=== PATIENT | female | born 2000 | race African-American/Black ===

== ENCOUNTER 2023-05-18 16:43 | Emergency (ER) | payer MEDICAID, OTHER, SELFPAY ==
--- NOTE | ~2023-05-18 | CT_ITS ---
EXAMINATION: CT ABDOMEN AND PELVIS WITHOUT CONTRAST CLINICAL INFORMATION: Abdominal pain nausea and vomiting, question calculi COMPARISON: None available. TECHNIQUE: Multidetector volumetric imaging was performed from the superior aspect of the liver through the pubic symphysis. Sagittal and coronal reformatted images were obtained on the technologist's workstation. This CT examination was performed using dose optimization techniques as appropriate, variously including the following: *Automated exposure control *Adjustment of mA and/or kV according to patient size (this includes techniques or standardized protocols for targeted exams where dose is matched to indication/reason for exam; i.e. extremities or head) *Use of iterative reconstruction technique DLP: 440 mGy-cm FINDINGS: LUNG BASES: The visualized lung bases are unremarkable. LIVER, GALLBLADDER, AND BILIARY TREE: The liver is normal in size, shape, and attenuation. No focal hepatic lesion or biliary ductal dilatation is present. The gallbladder is unremarkable with no evidence of radiopaque gallstones, gallbladder wall thickening, or obvious pericholecystic inflammatory changes. PANCREAS: Unremarkable. SPLEEN: Unremarkable. ADRENAL GLANDS: Unremarkable. KIDNEYS AND URETERS: The kidneys are normal in size, shape, and attenuation. No hydronephrosis, hydroureter, or calculi seen. No perinephric stranding. BLADDER: Unremarkable. GASTROINTESTINAL TRACT: The small and large bowel are unremarkable. The appendix is unremarkable. ABDOMINAL WALL: No significant hernia is appreciated. LYMPH NODES: Normal. VASCULAR: Unremarkable. PELVIC VISCERA: There is a 4.6 x 4.0 x 5.3 cm left adnexal cyst. OSSEOUS STRUCTURES: Unremarkable. CT/CT abdomen pelvis wo IV con IMPRESSION: 1. No explanation for abdominal pain. 2. Left adnexal cyst. Fleischner guidelines were followed.
[2023-05-18 17:02] VITALS: BP 113/68; PULSE 81; RESP 18; TEMP 36.7; O2SAT 100; BMI 27.4
--- NOTE | 2023-05-18 17:02 | ED_ITS ---
HPI - Abdominal Pain General Chief Complaint: Abdominal Pain Stated Complaint: Abdominal pain Time Seen by Provider: 05/18/23 21:41 Source: patient Mode of arrival: ambulatory Limitations: no limitations History of Present Illness HPI narrative: Patient no significant past medical history couple been having diffuse abdominal pain for last 1 month got worse lately for last few days had nausea vomited 1 time and loose bowels small amount of blood in the end of the stool with history of hemorrhoids no fever no chills patient is under increased stress feels bloated Related Data Previous Rx's Medication Instructions Recorded cefuroxime axetil 250 mg tablet 250 mg PO BID 7 days #14 tabs 05/18/23 dicyclomine 20 mg tablet 20 mg PO QID PRN abdominal pain 05/18/23 #20 tabs ibuprofen 600 mg tablet 600 mg PO Q6H PRN fever or pain 05/18/23 #30 tabs Allergies Allergy/AdvReac Type Severity Reaction Status Date / Time No Known Allergies Allergy Verified 05/18/23 17:01 Review of Systems Review of Systems Yes all other systems are reviewed and are negative [facility] Social History Social History Smoked in Last 30 Days: No Use of substances other than those prescribed or required for medical reasons: No Advance Directives: No Advance Directives Information Provided: No Patient : No Physical Exam ED Vital Signs: Vital Signs - 24 hr 05/18/23 17:02 05/18/23 21:50 Temperature 98.1 F 98.2 F Pulse Rate 81 70 Respiratory Rate 18 16 Blood Pressure 113/68 114/76 Pulse Oximetry 100 100 Oxygen Delivery Method Room Air Room Air BMI result Body Mass Index 27.4 Appearance: Alert. Oriented X3. No acute distress. Neck: Normal inspection. Neck supple. CVS: Normal heart rate and rhythm. Pulses normal. Respiratory: No respiratory distress. Equal air entry bilateral, Abdomen: Soft mild diffuse tenderness no significant tenderness in suprapubic area no rebound tenderness or guarding Bowel sounds are present, no mass palpable, no CVA tenderness Skin: Skin warm and dry. Normal skin color. Normal skin turgor. Course Course Course Narrative: This is an RME: Additional HPI, ROS, PE not included below will be deferred to primary provider. Patient is a 22-year-old female who presents to the emergency department for evaluation of ABD pain. Onset 2 weeks ago, diffuse abdominal pain, constant in nature, worsens with eating, associated chills and nausea. Has had similar pain in the past, denies known etiology. Endorses dysuria, hematochezia, history of hemorrhoids, diarrhea. Denies possibility of Plan: Labs, UA Medical Decision Making Differential Diagnosis Differential Diagnoses: The differential diagnosis associated with the presentation includes UTI/IBS/ovarian cyst/gastroenteritis Admission/Observation Consideration of admission/observation: Escalation of care including admission/observation considered Lab Data MDM Lab Attestation statement: I reviewed the patient's lab results. 05/18/23 17:36 05/18/23 17:36 Labs: Lab Results 05/18/23 Range/Units 17:36 WBC 11.6 H (4.8-10.8) X10*3/uL RBC 5.45 (4.20-5.50) X10*6/uL Hgb 10.8 L (12.0-16.0) g/dl Hct 34.9 L (37.0-47.0) % MCV 64.0 L (80.0-98.0) fL MCH 19.8 L (27.0-33.0) pg MCHC 30.9 L (31.0-35.0) g/dl RDW 16.3 H (11.0-16.0) % Plt Count 181 (160-400) X10*3/uL MPV Not Reportable Immature Gran % (Auto) 0.3 (0.0-0.4) % Neut % (Auto) 76.4 H (45-73) % Lymph % (Auto) 14.5 L (20-40) % [place] % (Auto) 7.4 (2-11) % Eos % (Auto) 0.8 (0-4) % Baso % (Auto) 0.6 (0-2) % Lymph # (Auto) 1.7 (1.2-4.9) X10*3/uL [place] # (Auto) 0.9 (0.1-1.2) X10*3/uL Eos # (Auto) 0.1 (0.0-0.4) X10*3/uL Baso # (Auto) 0.1 (0.0-0.2) X10*3/uL Abs Immat Gran (auto) 0.04 H (0.00-0.03) X10*3/uL Absolute Neuts (auto) 8.9 H (2.0-8.3) x10*3/uL Absolute Nucleated RBC 0.000 (0.0-0.012) X10*3/uL Nucleated RBC % (auto) 0.0 (0.0-0.2) /100WBC Sodium 140 (135-145) mmol/L Potassium 3.7 (3.3-5.1) mmol/L Chloride 110 H (96-108) mmol/L Carbon Dioxide 26 (22-29) mmol/L Anion Gap 8 L (12-20) BUN 7 L (9-16) mg/dL Creatinine 0.72 (0.5-1.4) mg/dL Estim Creat Clear Calc 127.4 Estimated GFR > 60 Random Glucose 107 (60-115) mg/dL Calcium 9.0 (8.4-10.2) mg/dL Total Bilirubin 0.2 (0.0-1.0) mg/dL AST 15 (5-31) U/L ALT 11 (0-31) U/L Alkaline Phosphatase 75 (39-117) U/L Total Protein 7.4 (6.5-8.0) g/dL Albumin 3.8 (3.5-5.0) g/dL Lipase 19 (8-78) U/L Beta HCG, Quant < 2 mIU/mL Urine Color Yellow Urine Appearance Turbid Urine pH 5.5 (5.0-9.0) Ur Specific [place] >= 1.030 H (1.005-1.025) Urine Protein 100 (2+) H (Neg-Trace) mg/dL Urine Glucose (UA) Negative (Negative) mg/dL Urine Ketones Negative (Negative) mg/dL Urine Blood Large (3+) H (Negative) Urine Nitrite Negative (Negative) Ur Leukocyte Esterase Moderate (2+) H (Negative) Urine RBC >20 H (0-2) /HPF Urine WBC >50 H (0-5) /HPF Ur Squamous Epith Cells 6-10 (0-2) /HPF Calcium Oxalate Crystal Present Urine Bacteria 1+ (None Seen) Hyaline Casts 0-2 (0-2) /LPF Urine Yeast Present Medications Administered Discontinued Medications Generic Name Dose Route Start Last Admin Trade Name Freq PRN Reason Stop Dose Admin Cefuroxime Axetil 250 mg 05/18/23 22:15 05/18/23 22:22 Cefuroxime Axetil 250 Mg Tablet PO 05/18/23 22:16 250 mg ONCE ONE Administration Dicyclomine HCl 20 mg 05/18/23 22:15 05/18/23 22:22 Dicyclomine Hcl 10 Mg Capsule PO 05/18/23 22:16 20 mg ONCE ONE Administration Discharge Plan Discharge Clinical Impression: Ovarian cyst, Irritable bowel syndrome, UTI (urinary tract infection) Patient Disposition: Home, Self-Care Instructions: Ovarian Cyst (ED), Irritable Bowel Syndrome (ED), Urinary Tract Infection in Women (ED) Additional Instructions: Drink plenty of fluids You have left ovarian cyst Also have slight urine tract infection Take antibiotic as prescribed Ibuprofen for pain Bentyl for abdominal discomfort Follow-up with a chief controller center for ovarian cyst which should get better in next 2 months Beber mucho l?quido Te last salido quiste ov?rico Tambi?n tiene jimmy infecci?n leve del tracto urinario. Cotati el antibi?joyce seg?n lo prescrito ibuprofeno para el dolor Bentyl para molestias abdominales. Seguimiento con ginec?logo por quiste ov?rico que deber?a mejorar en los pr?ximos 2 meses. Prescriptions: New cefuroxime axetil 250 mg tablet 250 mg PO BID 7 Days Qty: 14 0RF dicyclomine 20 mg tablet 20 mg PO QID PRN (Reason: abdominal pain) Qty: 20 0RF ibuprofen 600 mg tablet 600 mg PO Q6H PRN (Reason: fever or pain) Qty: 30 0RF Print Language: Frisian
[2023-05-18 17:44] LABS: MANUAL DIFF FLAG NO
[2023-05-18 17:47] LABS: Appearance Urine Turbid; Color Urine Yellow; Glucose Urine UA Negative (Negative); Leukocyte Esterase Urine Moderate (2+) (Negative); Nitrite Urine Negative (Negative); PH 5.5 (5.0-9.0); Specific Gravity - Urine >= 1.030 (1.005-1.025); UMIC TRIGGER UACC YES; Urine Blood Large (3+) (Negative); Urine Ketones Negative (Negative); Urine Protein 100 (2+) mg/dL (Neg-Trace)
[2023-05-18 18:02] LABS: Bacteria Urine 1+ (None Seen); Calcium Oxalate Crystals Urine Present; Hyaline Casts Urine 0-2 /LPF (0-2); RBC Urine >20 /HPF (0-2); UACC Culture Trigger YES; WBC Urine >50 /HPF (0-5)
[2023-05-18 18:08] LABS: Alanine Aminotransferase 11 U/L (0-31); Albumin Level 3.8 g/dL (3.5-5.0); Alkaline Phosphatase 75 U/L (39-117); Anion Gap 8 (12-20); Aspartate Amino Transferase 15 U/L (5-31); Bilirubin Total 0.2 mg/dL (0.0-1.0); Blood Urea Nitrogen 7 mg/dL (9-16); Carbon Dioxide 26 mmol/L (22-29); Chloride 110 mmol/L (96-108); Creatinine Clr Calc Pharmacy 127.4; Estimated Glomerular Filt Rate > 60; Glucose Random 107 mg/dL (60-115); Lipase 19 U/L (8-78); Potassium 3.7 mmol/L (3.3-5.1); Sodium 140 mmol/L (135-145); Total Protein 7.4 g/dL (6.5-8.0)
[2023-05-18 18:12] LABS: HCG Quantitative < 2 mIU/mL
[2023-05-18 18:21] LABS: Basophils Absolute Auto 0.1 X10*3/uL (0.0-0.2); Basophils Percent Auto 0.6 % (0-2); Eosinophils Absolute Auto 0.1 X10*3/uL (0.0-0.4); Eosinophils Percent Auto 0.8 % (0-4); Hematocrit 34.9 % (37.0-47.0); Hemoglobin 10.8 g/dl (12.0-16.0); Imm Gran Abs Auto 0.04 X10*3/uL (0.00-0.03); Imm Gran Pct Auto 0.3 % (0.0-0.4); Lymphocytes Absolute Auto 1.7 X10*3/uL (1.2-4.9); Lymphocytes Percent Auto 14.5 % (20-40); Mean Corpuscular HGB Conc 30.9 g/dl (31.0-35.0); Mean Corpuscular Hemoglobin 19.8 pg (27.0-33.0); Monocytes Absolute Auto 0.9 X10*3/uL (0.1-1.2); Monocytes Percent Auto 7.4 % (2-11); Neutrophils Absolute Auto 8.9 x10*3/uL (2.0-8.3); Neutrophils Percent Auto 76.4 % (45-73); Platelet Count 181 X10*3/uL (160-400); Red Blood Count 5.45 X10*6/uL (4.20-5.50); Red Cell Distribution Width 16.3 % (11.0-16.0); White Blood Count 11.6 X10*3/uL (4.8-10.8)
[2023-05-18 21:50] VITALS: BP 114/76; PULSE 70; RESP 16; TEMP 36.8; O2SAT 100
[2023-05-18] MEDS: cefuroxime axetiL 250 MG TABLET PO (22:22)
[2023-05-18] MEDS: Dicyclomine HCl 10 MG CAPSULE 20 MG PO (22:22)
== END 2023-05-18 22:38 | disposition home or self-care (01) ==
PROVIDERS: Nurse Practitioner Family; Emergency Provider Internal Medicine
DX: N83.292 Other ovarian cyst, left side (principal); K58.9 Irritable bowel syndrome, unspecified; N39.0 Urinary tract infection, site not specified
CPT/HCPCS: 36415; 74176; 80053; 81001; 83690; 84702; 85025; 87086; 99284